=== PATIENT | female | born 1985 | race Caucasian/White ===

== ENCOUNTER 2017-12-19 07:54 | Emergency (ER) | payer SELFPAY ==
[~2017-12-19] VITALS: Ht 162.6 cm; Wt 68.2 kg
[2017-12-19 09:08] LABS: INFLUENZA TYPE A NEGATIVE FOR TYPE A (NEGATIVE); INFLUENZA TYPE B NEGATIVE FOR TYPE B (NEGATIVE); RAPID GROUP A STREP NEGATIVE (NEGATIVE)
[2017-12-19] MEDS ORDERED: PENICILLIN V POTASSIUM 500 MG TABLET PO ONE (09:15)
[2017-12-19] MEDS ORDERED: IBUPROFEN 600 MG TABLET PO ONE (09:30)
[2017-12-19 09:47] VITALS: BP 114/58
== END 2017-12-19 09:51 | disposition home or self-care (01) ==
LOC: EMS 07:56
DX: J03.90 Acute tonsillitis, unspecified (principal)
CPT/HCPCS: 87430; 87804; 99284